=== PATIENT | male | born 1990 | race Caucasian/White ===

== ENCOUNTER 2021-01-11 10:05 | Emergency (ER) | payer SELFPAY ==
[2021-01-11 10:22] VITALS: BP 170/96; PULSE 65; RESP 18; TEMP 36.9; O2SAT 95; BMI 22.8
[2021-01-11 10:25] VITALS: BP 170/96; PULSE 65; RESP 18; TEMP 36.9; O2SAT 95
--- NOTE | 2021-01-11 10:31 | ED_ITS ---
HPI - Nausea/Vomiting/Diarrhea General: Chief complaint: Nausea/Vomiting/Diarrhea Stated complaint: Vomiting Time Seen by Provider: 01/11/21 10:08 History of Present Illness: HPI Narrative: Patient is a 30-year-old male comes to the ED with left-sided abdominal pain, nausea and vomiting. Patient started developing symptoms last night. He says last night he first had pain in his left side of his abdomen. he then developed nausea and vomiting and has not been able to keep any food or fluids down for the last 12 hours. He has had multiple episodes of emesis every hour. He says he took a hot shower last night and it did not help his symptoms. His most recent emesis here in the ED, had a dark red tint to it. Here in the ED he says his abdominal pain has pretty much resolved. He only has abdominal pain on the left side here in the ED when he is vomiting. He was taking pantoprazole but says he recently stopped taking it within the last 2 to 3 weeks. Denies any fever, chills, chest pain, upper respiratory symptoms, bladder or bowel symptoms. Patient admits to being a chronic marijuana user and said he has had some episodes similar to this, but this episode was more severe nausea and vomiting. Patient also denies any history of alcohol abuse and is not a daily drinker. Associated nausea: Yes Associated symtoms: Reports nausea; Denies change in vision, chest pain, dysuria, fatigue, headache(s) or palpitations Review of Systems Const: Denies: fever(s), chills or fatigue Eyes: Denies: change in vision or eye discomfort ENMT: Denies: throat pain, odynophagia, nasal discharge or nasal congestion Card: Denies: chest pain, palpitations, edema, swelling of feet/ankles, dyspnea on exertion or orthopnea Resp: Denies: dyspnea, productive cough or non-productive cough GI: Reports: abdominal pain, nausea, vomiting and hematemesis (dark red tint emesis); Denies: diarrhea, constipation or hematochezia : Denies: flank pain, difficulty urinating, dysuria or hematuria Musc: Denies: neck pain, back pain or extremity swelling Skin/Breast: Denies: rash or new lesions Neuro: Denies: headache(s), numbness in extremities or weakness in extremities Physical Exam Const: COMMON NORMALS: patient oriented x3 and alert GENERAL APPEARANCE: cooperative and in distress (Patient actively vomiting); not comfortable HENMT: COMMON NORMALS: normocephalic HEAD & SCALP: normocephalic MOUTH: Normal oral and palatal mucosa present THROAT: posterior oropharynx normal and uvula midline Eye: COMMON NORMALS: Equal, round and reactive pupils present PUPIL: Yes Equal, round and reactive pupils present Neck/C-Spine: COMMON NORMALS: supple GENERAL: Yes normal visual inspection Resp: COMMON NORMALS: normal respiratory effort, No retractions, No use of accessory muscles and clear to auscultation bilaterally AUSCULTATION: clear to auscultation bilaterally Cardio: COMMON NORMALS: regular rate, regular rhythm, S1 normal heart sound present, S2 normal heart sound present, No gallops present (Cardio), No clicks present (Cardio), No murmurs present (Cardio) and Peripheral pulses 2+ throughout RATE: regular rate RHYTHM: regular rhythm HEART SOUNDS: S1 normal heart sound present and S2 normal heart sound present PERIPHERAL PULSES: Peripheral pulses 2+ throughout GI: COMMON NORMALS: Normal to inspection, nondistended, normoactive bowel sounds present, Soft to palpation and no masses PALPATION: Yes Soft to palpation and Yes Tenderness to palpation present (GI) (Mild tenderness) Details: LLQ and LUQ : COMMON NORMALS: Yes no CVA tenderness BLADDER/KIDNEY EXAM: Yes no CVA tenderness Back/Pelvis: COMMON NORMALS: no CVA tenderness Extremity: COMMON NORMALS: normal to inspection Neuro: COMMON NORMALS: patient oriented x3 and moves all extremities SENSORIUM/ORIENTATION: Yes alert Skin: GENERAL SKIN EXAM: dry skin Course ED course: Patient's emesis was checked for blood. Hemoccult test was positive. Reevaluation(s): Reevaluation #1: Since patient received IV 2L fluids and Zofran he has not had any episodes of emesis. Patient says he feels a lot better and his nausea has resolved. He has no abdominal pain. Time: 14:07 Vital Signs: Vital signs: Vital Signs Temperature 98.5 F 01/11/21 10:25 Pulse Rate 84 01/11/21 15:38 Respiratory Rate 18 01/11/21 15:38 Blood Pressure 170/96 01/11/21 15:38 Pulse Oximetry 98 01/11/21 15:38 MDM - Nausea/Vomiting/Diarrhea [facility] Narrative: Medical decision making narrative: Patient is a 30-year-old male comes to the ED with acute nausea and vomiting that started last night. He initially said he had some left sided abdominal pain upon onset of symptoms but here in the ED he does not have any acute abdominal pain. Patient's last episode of emesis did have a red tinge to it. Patient endorses having a history of chronic marijuana use and said he has had episodes similar to this in the past but not as severe of nausea and vomiting. Nurse did a Hemoccult study on emesis and it did test positive for blood. Vitals are stable. Patient is actively vomiting upon history and physical exam. He had some mild generalized left-sided abdominal tenderness, but the rest of exam was benign. White blood cell count 15.1 patient's initial lactic was 2.4. The rest of his labs were unremarkable. CT abdomen pelvis showed no acute findings. Patient was given 2 L of IV fluids and Zofran and symptoms completely resolved. Patient was feeling a lot better. A lactic was rechecked after IV fluids given and it went down to 2.0. Patient diagnosed with acute nausea and vomiting, likely related to his marijuana use. Patient appeared stable for discharge. He was sent home with a prescription for Zofran and told to follow-up with his PCP in 7 to 10 days for reevaluation. Return to ED precautions given. Patient understood and agree with plan. Lab Data: Attestation: I reviewed the patient's lab results. Labs: Lab Results 01/11/21 01/11/21 01/11/21 10:36 10:36 10:36 WBC 15.1 10^3/uL H 10 ^3/uL (4.0-10.0) RBC 5.01 10^6/uL 10^6 /uL (4.1-5.3) Hgb 15.4 g/dL g/dL (11.7-16.6) Hct 45.8 % % (42.0-52.0) MCV 91.4 fl fl (80-94) MCH 30.7 pg pg (28.0-34.0) MCHC 33.6 g/dL g/dL (30.0-36.0) RDW 12.6 % % (12.1-15.1) Plt Count 325 10^3/cmm 10^3 /cmm (130-400) MPV 9.8 fL fL (7.4-10.4) Neut % (Auto) 82.0 % % Lymph % (Auto) 12.6 % % Nicollet % (Auto) 4.9 % % Eos % (Auto) 0.0 % % Baso % (Auto) 0.2 % % Neut # (Auto) 12.39 10^3/uL H 1 0^3/uL (1.8-7.7) Lymph # (Auto) 1.9 10^3/uL 10^3/ uL (0.8-4.8) Nicollet # (Auto) 0.7 10^3/uL 10^3/ uL (0.2-0.9) Eos # (Auto) 0.0 10^3/uL 10^3/ uL (0.0-0.8) Baso # (Auto) 0.0 10^3/uL 10^3/ uL (0.0-0.1) Nucleated RBC % (a uto) 0 % % Nucleated RBCs # 0.0 /100WBC /100W BC Sodium 139 mmol/L mmol/L (136-145) Potassium 3.9 mmol/L mmol/L (3.5-5.1) Chloride 96 mmol/L L mmol/ L (98-107) Carbon Dioxide 26 mmol/L mmol/L (22-29) Anion Gap 20.9 H (5-19) BUN 10 mg/dL mg/dL (6-20) Creatinine 0.8 mg/dL mg/dL (0.7-1.2) GFR Calculation 112.8 mL/min mL/m in (90-130) Glucose 158 mg/dL H mg/dL (65-115) Calculated Osmolal ity 290 mOsm/kg mOsm/ kg (285-295) Lactic Acid 2.4 mmol/L H mmol /L (0.5-2.2) Lactic Acid (Sepsi s) Calcium 10.4 mg/dL mg/dL (8.5-10.5) Total Bilirubin 0.5 mg/dL mg/dL (0.15-1.2) AST 21 U/L U/L (0-40) ALT 20 U/L U/L (0-41) Alkaline Phosphata se 55 IU/L IU/L (40-130) Total Protein 8.6 g/dL g/dL (6.6-8.7) Albumin 5.1 g/dL g/dL (3.5-5.2) Globulin 3.5 g/dL g/dL (1.3-4.6) Lipase 23 U/L U/L (13-60) Urine Color Urine Appearance Urine pH Ur Specific Gravit y Urine Protein Urine Glucose (UA) Urine Ketones Urine Blood Urine Nitrate Urine Bilirubin Urine Urobilinogen Ur Leukocyte Noemi ase Ethyl Alcohol < 10 mg/dL mg/dL (0-10) 3 01/11/21 01/11/21 13:31 13:57 WBC RBC Hgb Hct MCV MCH MCHC RDW Plt Count MPV Neut % (Auto) Lymph % (Auto) Nicollet % (Auto) Eos % (Auto) Baso % (Auto) Neut # (Auto) Lymph # (Auto) Nicollet # (Auto) Eos # (Auto) Baso # (Auto) Nucleated RBC % (a uto) Nucleated RBCs # Sodium Potassium Chloride Carbon Dioxide Anion Gap BUN Creatinine GFR Calculation Glucose Calculated Osmolal ity Lactic Acid Lactic Acid (Sepsi s) 2.0 mmol/L mmol/L (0.5-2.2) Calcium Total Bilirubin AST ALT Alkaline Phosphata se Total Protein Albumin Globulin Lipase Urine Color Yellow (Yellow) Urine Appearance Clear (CLEAR) Urine pH 7 (5-7) Ur Specific Gravit y 1.010 (1.005-1.030) Urine Protein Neg (Negative) Urine Glucose (UA) Norm (Normal) Urine Ketones Negative (Negative) Urine Blood Neg (Negative) Urine Nitrate Negative (Negative) Urine Bilirubin Neg (Negative) Urine Urobilinogen Norm mg/dL mg/dL (Negative) Ur Leukocyte Noemi ase Negative (Negative) Ethyl Alcohol Imaging Data^: CT Abd/Pel: Attestation: I personally reviewed and interpreted this imaging study as follows: Radiologist's impression: [address] [address] [address] Scan Report Signed Patient: Justino Davila Unit #: [id number] : 1990 Age/Sex: 30 / M ADM Date: 01/11/21 Loc: ER Room/Bed: Attending Dr: Ordering Provider/Ordering MD: Santana Giraldo Date of Service: 01/11/21 Procedure(s): CT abdomen pelvis w con* [id number] Accession Number(s): [id number] Report Number: [id number] PROCEDURE INFORMATION: Exam: CT Abdomen And Pelvis With Contrast Exam date and time: 01/11/2021 10:39 AM Age: 30 years old Clinical indication: Vomiting; Abdominal pain; Additional info: Left side abdominal pain, acute n/v TECHNIQUE: Imaging protocol: Computed tomography of the abdomen and pelvis with contrast. Total images: 225 Radiation optimization: All CT scans at this facility use at least one of these dose optimization techniques: automated exposure control; mA and/or kV adjustment per patient size (includes targeted exams where dose is matched to clinical indication); or iterative reconstruction. Contrast material: OMNI 300; Contrast volume: 95 ml; Contrast route: INTRAVENOUS (IV); COMPARISON: No relevant prior studies available. RADIATION DOSE METRICS: Total DLP (mGy-cm): 975.19 FINDINGS: Liver: There is periportal edema. Gallbladder and bile ducts: Normal. No calcified stones. No ductal dilation. Pancreas: Normal. No ductal dilation. Spleen: Incidental splenic granuloma. Adrenal glands: Normal. No mass. Kidneys and ureters: Normal. No hydronephrosis. Stomach and bowel: Moderate stool burden. Appendix: No evidence of appendicitis. Intraperitoneal space: Unremarkable. No free air. No significant fluid collection. Vasculature: Incidental phleboliths noted. Lymph nodes: Unremarkable. No enlarged lymph nodes. Urinary bladder: The urinary bladder is significantly distended. Reproductive: Unremarkable as visualized. Bones/joints: Unremarkable. No acute fracture. Soft tissues: Unremarkable. CT/CT abdomen pelvis w con* [id number] IMPRESSION: 1. There is periportal edema. This is most commonly seen with IV fluid resuscitation but recommend correlation with liver function tests. 2. The urinary bladder is significantly distended. 3. Moderate stool burden. 4. No acute process identified. Radiation Dose CTDIVOL = (mGy): DLP = 975.19 (mGy-cm) Dictated By: Roger Benoit MD Signed By: Roger Benoit MD Signed Date/Time: 01/11/21 1201 DD/ 1039 Discharge Plan Discharge Patient Disposition: Home Clinical Impression: Nausea and vomiting Qualifiers: Vomiting type: unspecified Vomiting Intractability: non-intractable Qualified Code(s): R11.2 - Nausea with vomiting, unspecified Condition: Stable Prescriptions: New ondansetron 4 mg tablet,disintegrating 4 mg PO Q8H PRN (Reason: nausea and vomiting) Qty: 20 RF: 0 Discharge Orders: Discharge ED (Routine); Ordered 01/11/21 Ordered By: Santana Giraldo Discharge Diet: Regular Discharge Activity: Resume usual activity Patient Instructions: Acute Nausea and Vomiting (ED) Activity Restrictions/Additional Instructions: Follow-up with medical provider as directed in 5-7 days for reevaluation. Take medications as prescribed. Drink plenty of fluids and stay hydrated. Return to the ER or your medical provider if condition worsens. Please read and understand discharge instructions. Thank you for choosing [facility] for your healthcare needs today. Please realize this is an emergency room and that we are providing you with a medical screening exam and this may not be complete and all inclusive of all the testing and or work up that you may need to determine your ailment or severity of your illness. It is very important that you follow up as instructed or that you return to the Emergency Department should you have concerns or if your condition changes or worsens in any way. Coding Level of Care Code ED Home Assessment Nurse for Moncho Mirza Exam Comprehensive
--- NOTE | 2021-01-11 10:39 | CTR_ITS ---
PROCEDURE INFORMATION: Exam: CT Abdomen And Pelvis With Contrast Exam date and time: 01/11/2021 10:39 AM Age: 30 years old Clinical indication: Vomiting; Abdominal pain; Additional info: Left side abdominal pain, acute n/v TECHNIQUE: Imaging protocol: Computed tomography of the abdomen and pelvis with contrast. Total images: 225 Radiation optimization: All CT scans at this facility use at least one of these dose optimization techniques: automated exposure control; mA and/or kV adjustment per patient size (includes targeted exams where dose is matched to clinical indication); or iterative reconstruction. Contrast material: OMNI 300; Contrast volume: 95 ml; Contrast route: INTRAVENOUS (IV); COMPARISON: No relevant prior studies available. RADIATION DOSE METRICS: Total DLP (mGy-cm): 975.19 FINDINGS: Liver: There is periportal edema. Gallbladder and bile ducts: Normal. No calcified stones. No ductal dilation. Pancreas: Normal. No ductal dilation. Spleen: Incidental splenic granuloma. Adrenal glands: Normal. No mass. Kidneys and ureters: Normal. No hydronephrosis. Stomach and bowel: Moderate stool burden. Appendix: No evidence of appendicitis. Intraperitoneal space: Unremarkable. No free air. No significant fluid collection. Vasculature: Incidental phleboliths noted. Lymph nodes: Unremarkable. No enlarged lymph nodes. Urinary bladder: The urinary bladder is significantly distended. Reproductive: Unremarkable as visualized. Bones/joints: Unremarkable. No acute fracture. Soft tissues: Unremarkable. CT/CT abdomen pelvis w con* [id number] IMPRESSION: 1. There is periportal edema. This is most commonly seen with IV fluid resuscitation but recommend correlation with liver function tests. 2. The urinary bladder is significantly distended. 3. Moderate stool burden. 4. No acute process identified. Radiation Dose CTDIVOL = (mGy): DLP = 975.19 (mGy-cm)
[2021-01-11] MEDS: ondansetron 2 mg/ML SDV 2 mL 4 MG IVP ×2 (10:41→13:25)
[2021-01-11] MEDS: sodium chloride 0.9% 1,000 ML 999 ML IV ×2 (10:41→13:26)
--- NOTE | 2021-01-11 10:42 | PC.NURSE ---
Gastrococult completed on emesis, noted positive results, provider notified.
[2021-01-11 10:49] LABS: Basophils % 0.2 %; Hematocrit 45.8 % (42.0-52.0); Hemoglobin 15.4 g/dL (11.7-16.6); Lymphocytes # 1.9 10^3/uL (0.8-4.8); Lymphocytes % 12.6 %; Mean Corpuscular HGB Conc 33.6 g/dL (30.0-36.0); Mean Corpuscular Hemoglobin 30.7 pg (28.0-34.0); Mean Corpuscular Volume 91.4 fl (80-94); Mean Platelet Volume 9.8 fL (7.4-10.4); Monocytes # 0.7 10^3/uL (0.2-0.9); Monocytes % 4.9 %; Neutrophils # 12.39 10^3/uL (1.8-7.7); Nucleated Red Blood Cells % 0 %; Platelet Count 325 10^3/cmm (130-400); Red Blood Count 5.01 10^6/uL (4.1-5.3); Red Cell Distribution Width 12.6 % (12.1-15.1); White Blood Count 15.1 10^3/uL (4.0-10.0)
[2021-01-11 11:02] LABS: Alanine Aminotransferase 20 U/L (0-41); Albumin Level 5.1 g/dL (3.5-5.2); Alkaline Phosphatase 55 IU/L (40-130); Anion Gap 20.9 (5-19); Aspartate Amino Transferase 21 U/L (0-40); Blood Urea Nitrogen 10 mg/dL (6-20); Calcium 10.4 mg/dL (8.5-10.5); Carbon Dioxide 26 mmol/L (22-29); Chloride 96 mmol/L (98-107); Globulin 3.5 g/dL (1.3-4.6); Glomerular Filtration Rate 112.8 mL/min (90-130); Glucose 158 mg/dL (65-115); Lipase 23 U/L (13-60); Osmolality Calculated 290 mOsm/kg (285-295); Potassium 3.9 mmol/L (3.5-5.1); Sodium 139 mmol/L (136-145); Total Bilirubin 0.5 mg/dL (0.15-1.2); Total Protein 8.6 g/dL (6.6-8.7)
[2021-01-11 11:03] LABS: Lactic Sepsis W/Reflex 2.4 mmol/L (0.5-2.2)
[2021-01-11 11:07] VITALS: BP 170/96; PULSE 84; RESP 18; O2SAT 98
[2021-01-11 11:07] LABS: Alcohol Level < 10 mg/dL (0-10)
[2021-01-11] MEDS: iohexol 300 mg/mL 100 mL Btl IV (11:16)
[2021-01-11 11:19] LABS: Reflex Lactate Order REFLEX LACTIC ORDERD
--- NOTE | 2021-01-11 11:25 | PC.NURSE ---
report received from [facility]
--- NOTE | 2021-01-11 11:33 | PC.NURSE ---
while at bedside pt reports improvement of symptoms. pt states that he is unable to urinate at this time. pt is in nad.
[2021-01-11] MEDS: metoclopramide 5 mg/mL SDV 2 mL 10 MG IVP (13:25)
[2021-01-11 13:44] LABS: Add Urine Microscopic? NO; Charge for UA Resulting for Rev
[2021-01-11 13:50] LABS: Urine Appearance Clear (CLEAR); Urine Color Yellow (Yellow)
[2021-01-11 13:51] LABS: Bilirubin Urine Neg (Negative); Blood Urine Neg (Negative); Glucose Urine UA Norm (Normal); Ketones Urine Negative (Negative); Leukocyte Esterase Urine Negative (Negative); Nitrate Urine Negative (Negative); Protein Urine Neg (Negative); Urobilinogen Urine Norm (Negative); pH Urine 7 (5-7)
[2021-01-11 15:38] VITALS: BP 170/96; PULSE 84; RESP 18; O2SAT 98
== END 2021-01-11 15:38 | disposition home or self-care (01) ==
PROVIDERS: Emergency Provider Physician Assistant
DX: R11.2 Nausea with vomiting, unspecified (principal)
CPT/HCPCS: 74177; 80053; 80307; 81003; 83605; 83690; 85025; 96361; 96374; 96375; 96376; 99284; J2405; J2765; J7030; Q9967